=== PATIENT | male | born 1980 | race Caucasian/White ===

== ENCOUNTER 2024-05-05 07:36 | Outpatient (CLI) | payer BC | END 2024-05-05 07:37 | disposition home or self-care (01) | LOC: CSHRAD 07:36 | PROVIDERS: ATTEND Student in an Organized Health Care Education/Training Program | DX: R09.89 Other specified symptoms and signs involving the circulatory and respiratory systems (principal) | CPT/HCPCS: 71046 ==

== ENCOUNTER 2025-01-25 08:44 | Outpatient (CLI) | payer BC | END 2025-01-25 08:45 | disposition home or self-care (01) | LOC: CSHSLEEP 08:44 | PROVIDERS: ATTEND Student in an Organized Health Care Education/Training Program | DX: G47.33 Obstructive sleep apnea (adult) (pediatric) (principal); R53.83 Other fatigue; G25.89 Other specified extrapyramidal and movement disorders; R06.83 Snoring | CPT/HCPCS: 95810 ==